=== PATIENT | female | born 1995 | race Caucasian/White ===

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

== ENCOUNTER → 2020-12-29 | Outpatient (CLI) | payer BC ==
--- NOTE | 2020-12-29 16:06 | KCIC ---
US PELVIS COMPLETE History: Reason: INTRAUTERINE CONTRACEPTIVE DEVICE THREADS LOST, DYSPAREUNIA / Spl. Instructions: / History: Comparison: None Technique: Grayscale and color Doppler imaging of the pelvis was performed using transabdominal techn ique. Findings: The uterus measures 7.4 x 5.5 x 3.8 cm. Uterus has an unremarkable appearance. IUD noted within the upper endometrial canal. Right ovary measures 2.6 x 2.0 x 2.3 cm. Left ovary measures 2.7 x 1.8 x 1.7 cm. Normal Doppler flow to the ovaries. No adnexal masses are seen. IMPRESSION: 1. IUD noted within the upper endometrial canal. Electronically signed by: Que Rosales DO (12/29/2020 4:04 PM) [id number]
== END ==
LOC: KCIC US 12:37
PROVIDERS: ATTEND Family Medicine
DX: T83.32XA Displacement of intrauterine contraceptive device, initial encounter (principal); N94.10 Unspecified dyspareunia
CPT/HCPCS: 76856